=== PATIENT | female | born 1995 ===

== ENCOUNTER 2022-10-03 11:00 | Outpatient (CLI) | payer OTHER | END 2022-10-03 11:05 | disposition home or self-care (01) | LOC: SONOGRAMA 11:00 | PROVIDERS: ATTEND Pathology Anatomic Pathology & Clinical Pathology | DX: D44.0 Neoplasm of uncertain behavior of thyroid gland (principal); D34 Benign neoplasm of thyroid gland; E04.9 Nontoxic goiter, unspecified; E07.9 Disorder of thyroid, unspecified; E04.1 Nontoxic single thyroid nodule ==

== ENCOUNTER 2023-02-27 12:55 | Outpatient (CLI) | payer OTHER | END 2023-02-27 12:57 | disposition home or self-care (01) | LOC: EDBD 12:55 → SONOGRAMA 12:55 | PROVIDERS: ATTEND Pathology Anatomic Pathology | DX: D34 Benign neoplasm of thyroid gland (principal); E04.9 Nontoxic goiter, unspecified ==